=== PATIENT | male | born 1995 | race Caucasian/White ===

== ENCOUNTER 2016-08-04 19:45 | Emergency (ER) | payer BC, SELFPAY ==
[2016-08-04] MEDS ORDERED: Acetaminophen/Codeine 30-300mg Tablet ONE (22:13)
[2016-08-04] MEDS ORDERED: Neosporin Ophth Soln 10 ml Bottle ONE (22:17)
== END 2016-08-04 22:35 | disposition home or self-care (01) ==
LOC: MADERS 19:45
DX: H10.33 Unspecified acute conjunctivitis, bilateral (principal); F17.210 Nicotine dependence, cigarettes, uncomplicated; Z79.899 Other long term (current) drug therapy
CPT/HCPCS: 99283

== ENCOUNTER 2019-05-04 06:57 | Emergency (ER) | payer BC, SELFPAY | END 2019-05-04 07:39 | disposition home or self-care (01) | LOC: MADERS 06:57 | DX: M65.4 Radial styloid tenosynovitis [de Quervain] (principal); F17.210 Nicotine dependence, cigarettes, uncomplicated | CPT/HCPCS: 99283 ==